=== PATIENT | female | born 1980 | race Two or more races ===

== ENCOUNTER 2017-05-11 10:52 | Emergency (ER) | payer OTHER ==
[~2017-05-11] VITALS: Ht 160 cm; Wt 158.8 kg
[2017-05-11 10:57] VITALS: BP 136/84
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
--- NOTE | 2017-05-11 12:17 | Diagnostic Imaging Report ---
Indications: Facial pain Technique: Continuous helical CT imaging of the face was performed with automatic exposure control on a Siemens sensation [address] scanner. Axial and coronal images were reconstructed at 3 mm slice thickness. CTDI volume(s): 28.2 mGy Total DLP: 526 mGy-cm Findings: Comparison: None No fracture identified. Paranasal sinuses, bilateral mastoid air cells clear. Orbital anatomy intact bilaterally. Superficial soft tissues unremarkable. IMPRESSION: No evidence of acute injury or other acute abnormality
[2017-05-11 13:12] VITALS: BP 132/81
[2017-05-11 13:13] VITALS: BP 136/84
== END 2017-05-11 13:16 | disposition home or self-care (01) ==
LOC: EDBD 10:52 → EMR 11:56
DX: S00.83XA Contusion of other part of head, initial encounter (principal); Y04.2XXA Assault by strike against or bumped into by another person, initial encounter; Y93.9 Activity, unspecified; Y92.9 Unspecified place or not applicable
CPT/HCPCS: 70486; 99282